=== PATIENT | female | born 1945 | race Caucasian/White ===

== ENCOUNTER 2018-12-31 08:18 | Inpatient (IN) | payer MEDICARE, MEDICAID ==
[2018-12-19 15:17] LABS: BASOPHILS # (AUTO) 0.1 X10'3 (0-0.2); BASOPHILS % (AUTO) 1.1 % (0-1); EOSINOPHILS # (AUTO) 0.1 X10'3 (0-0.9); EOSINOPHILS % (AUTO) 1.9 % (0-6); LYMPHOCYTES % (AUTO) 31.4 % (21-51); MEAN CORPUSCULAR HEMOGLOBIN 28.7 PG (27.0-31.0); MEAN CORPUSCULAR HGB CONC 33.8 g/dL (33.0-36.5); MEAN PLATELET VOLUME 7.8 FL (7.4-10.4); MONOCYTES # (AUTO) 0.6 X10'3 (0-0.9); MONOCYTES % (AUTO) 8.9 % (2-12); NEUTROPHILS # (AUTO) 3.5 X10'3 (1.8-7.7); NEUTROPHILS % (AUTO) 56.7 % (42-75); PRE OP HEMATOCRIT 43.5 % (35.0-45.0); PRE OP HEMOGLOBIN 14.7 g/dL (12.0-16.0); PRE OP PLATELET COUNT 257 X10'3 (140-440); RED BLOOD COUNT 5.12 X10'6 (4.20-5.60); RED CELL DISTRIBUTION WIDTH 13.1 % (11.5-14.5)
[2018-12-19 15:33] LABS: ALBUMIN 3.7 G/DL (3.4-5.0); ALBUMIN/GLOBULIN RATIO 0.9 (1.1-1.5); ALKALINE PHOSPHATASE 73 IU/L (46-116); BLOOD UREA NITROGEN 12 MG/DL (7-18); BUN/CREATININE RATIO 17.1 (6.6-38.0); CALCIUM 9.6 MG/DL (8.5-10.1); CHLORIDE 104 MMOL/L (99-107); PRE OP ALT 76 U/L (30-65); PRE OP ANION GAP 8 (8-16); PRE OP AST 40 U/L (10-37); PRE OP BILIRUB, TOTAL 0.3 MG/DL (0.0-1.0); PRE OP GLUCOSE 105 MG/DL (70-104); PRE OP POTASSIUM 4.2 MMOL/L (3.4-5.1); PRE OP SODIUM 141 MMOL/L (135-145); TOTAL CARBON DIOXIDE 29.1 MMOL/L (24-32); TOTAL PROTEIN 7.7 G/DL (6.4-8.2); eGFR 82 ML/MIN
[2018-12-19 15:34] LABS: HEMOGLOBIN A1C 6.3 % (4.5-6.2)
[~2018-12-31] VITALS: Ht 165.1 cm; Wt 83.1 kg
[2018-12-31] VITALS (19 sets, daily range): BP systolic 87–144; BP diastolic 45–83
[~2018-12-31 08:18] MED LIST: METF500T PO; MONT10TA21 PO; MULT1TAB74 PO
[2018-12-31] MEDS ORDERED: cefazolin/dext.iso 2gm/100 ML IV ONE (08:30)
[2018-12-31] MEDS ORDERED: vancomycin inj 1,500 MG in normal saline 300ml IV soln IV ONE (08:30)
[2018-12-31] MEDS ORDERED: ringers solution, lacted 1,000 ML IV SCH (08:30)
[2018-12-31] MEDS ORDERED: tranexamic acid inj. 1,000 MG in normal saline 100 ML IV ONE (08:30)
[2018-12-31] MEDS ORDERED: famotidine 20mg tablet PO ONE (08:30)
[2018-12-31] MEDS ORDERED: ceFAZolin 1000mg inj ONE (09:00)
[2018-12-31] MEDS ORDERED: tetracaine 1% (10mg/ml) pres. free inj. ONE (10:17)
[2018-12-31] MEDS ORDERED: MIDAZolam 1mg/ml 10ml vial ONE (10:19)
[2018-12-31] MEDS ORDERED: fentaNYL/PF 50MCG/1 ML 2ML syringe ONE (10:19)
[2018-12-31] MEDS ORDERED: propofol inj 20 ML IV ONE (10:52)
--- NOTE | 2018-12-31 12:40 | NUR ---
ADMITTED TO PACU FROM OR ACCOMPANIED BY ANESTHESIA. INTIAL PHYSICAL ASSESSMENT DONE AND RECORDED. AWAKE AND RESPONSE ON ARRIVE YO PACU, REPORT RECEIVED FROM ANESTHESIA.
[2018-12-31] MEDS ORDERED: acetaminophen 325mg tablet PO PRN (12:50)
[2018-12-31] MEDS ORDERED: magnesium hydroxide 30ml (MOM) UD suspension PO PRN (12:50)
[2018-12-31] MEDS ORDERED: bisacodyl 10mg suppository rectal RC PRN (12:50)
[2018-12-31] MEDS ORDERED: HYDROcodone/acetaminophen 10/325mg tab PO PRN (12:50)
[2018-12-31] MEDS ORDERED: HYDROmorphone inj. 0.5 MG/0.5 ML DISP.SYRIN IV PRN (12:50)
[2018-12-31] MEDS ORDERED: ondansetron/PF 4mg/2ml inj IV PRN (12:50)
[2018-12-31] MEDS ORDERED: diphenhydrAMINE 25mg capsule PO PRN ×2 (12:50)
[2018-12-31] MEDS ORDERED: MULT1TAB74 PO (13:05)
[2018-12-31] MEDS ORDERED: METF-436 PO (13:05)
[2018-12-31] MEDS ORDERED: ACET-2119 PO (13:05)
[2018-12-31] MEDS: HYDROcodone/acetaminophen 10/325mg tab PO PRN ×2 (13:54→19:12)
--- NOTE | 2018-12-31 14:00 | NUR ---
PACU DISCHARGE CRITERIA MET, REPORT GIVEN TO FLOOR. DENIES PAIN OR DISCOMFORT, TRANSFERRED TO ROOM IN STABLE GOOD CONDITION.
[2018-12-31] MEDS ORDERED: tranexamic acid inj. 830 MG in normal saline 100ml IV soln 100 ML IV ONE (15:30)
[2018-12-31] MEDS: ketorolac tromethamine 15mg/ml inj. IV SCH ×2 (15:38→20:23)
[2018-12-31] MEDS: ceFAZolin 1GM/D5W- ADD-VANTAGE 50 ML IV SCH (15:38)
[2018-12-31] MEDS ORDERED: HYDROmorphone 1 mg/ml syringe ONE (15:45)
--- NOTE | 2018-12-31 18:10 | NUR ---
Received report from Gladys HERMAN, assumed care of patient.
--- NOTE | 2018-12-31 18:11 | NUR ---
Problems reprioritized. Patient report given, questions answered & plan of care reviewed with Nidia Oviedo
[2018-12-31] MEDS ORDERED: vancomycin/NS 1 GM ADD-VANTAGE 250 ML IV SCH (20:00)
--- NOTE | 2018-12-31 20:03 | NUR ---
Spoke with MD Navarrete regarding ASA and Toradol order. He confirms the order is correct at this time with review of creatine.
[2018-12-31] MEDS: aspirin 81mg tab.chew PO SCH (20:23)
[2018-12-31] MEDS: sennosides 8.6mg tablet PO SCH (20:24)
[2018-12-31] MEDS: potassium Cl 20mEq in NS 1,000 ML IV SCH (22:02)
[2019-01-01] MEDS: ceFAZolin 1GM/D5W- ADD-VANTAGE 50 ML IV SCH (00:06)
[2019-01-01] MEDS: HYDROcodone/acetaminophen 10/325mg tab PO PRN ×4 (00:07→17:40)
[2019-01-01 02:00] VITALS: BP 89/62
[2019-01-01] MEDS: ketorolac tromethamine 15mg/ml inj. IV SCH ×2 (02:06→07:50)
[2019-01-01 06:13] LABS: BASOPHILS % (AUTO) 0.7 % (0-1); EOSINOPHILS # (AUTO) 0.1 X10'3 (0-0.9); EOSINOPHILS % (AUTO) 1.8 % (0-6); HEMATOCRIT 34.4 % (35.0-45.0); HEMOGLOBIN 11.8 g/dl (12.0-16.0); LYMPHOCYTES # (AUTO) 0.9 X10'3 (1.1-4.8); LYMPHOCYTES % (AUTO) 18.1 % (21-51); MEAN CORPUSCULAR HEMOGLOBIN 29.6 PG (27.0-31.0); MEAN CORPUSCULAR HGB CONC 34.2 g/dL (33.0-36.5); MEAN CORPUSCULAR VOLUME 86.4 FL (78-98); MEAN PLATELET VOLUME 7.6 FL (7.4-10.4); MONOCYTES # (AUTO) 0.6 X10'3 (0-0.9); NEUTROPHILS # (AUTO) 3.5 X10'3 (1.8-7.7); NEUTROPHILS % (AUTO) 68.4 % (42-75); PLATELET COUNT 147 X10'3 (140-440); RED BLOOD COUNT 3.98 X10'6 (4.20-5.60); RED CELL DISTRIBUTION WIDTH 13.3 % (11.5-14.5); WHITE BLOOD COUNT 5.1 X10'3 (4.5-11.0)
--- NOTE | 2019-01-01 06:21 | NUR ---
Report given to Peggy HERMAN.
[2019-01-01 06:30] LABS: ALANINE AMINOTRANSFERASE 42 U/L (12-78); ALBUMIN 2.8 G/DL (3.4-5.0); ALBUMIN/GLOBULIN RATIO 0.9 (1.1-1.5); ALKALINE PHOSPHATASE 49 IU/L (46-116); ANION GAP 6 (8-16); ASPARTATE AMINO TRANSFERASE 34 U/L (10-37); BILIRUBIN,TOTAL 0.6 MG/DL (0.1-1.0); BLOOD UREA NITROGEN 11 MG/DL (7-18); BUN/CREATININE RATIO 13.6 (6.6-38.0); CALCIUM 8.2 MG/DL (8.5-10.1); CHLORIDE 108 MMOL/L (99-107); CREATININE 0.81 MG/DL (0.40-0.90); GLUCOSE 136 MG/DL (70-104); POTASSIUM 4.1 MMOL/L (3.5-5.1); SODIUM 142 MMOL/L (135-145); TOTAL CARBON DIOXIDE 28.5 MMOL/L (24-32); TOTAL PROTEIN 5.8 G/DL (6.4-8.2); eGFR 69 ML/MIN
[2019-01-01] MEDS ORDERED: dextrose ORAL solution 15 GM/59 ML bottle PO PRN ×2 (06:35)
[2019-01-01] MEDS ORDERED: glucagon, human recombinant 1mg kit SUBCUT PRN (06:35)
[2019-01-01] MEDS ORDERED: insulin Lispro (HumaLOG) vial - multi-dose SQ SCH (06:35)
[2019-01-01] MEDS ORDERED: dextrose 50%-water 50ml dispensing syringe IV PRN ×2 (06:35)
[2019-01-01] MEDS ORDERED: MESSAGE TO PHARMACY PO ONE (06:35)
[2019-01-01 06:57] VITALS: BP 121/58
[2019-01-01] MEDS: aspirin 81mg tab.chew PO SCH ×2 (07:50→17:39)
[2019-01-01 11:15] VITALS: BP 101/57
[2019-01-01 14:00] VITALS: BP 93/65
--- NOTE | 2019-01-01 15:05 | NUR ---
Joint/DM consults: A1C <7 not appropriate for DM ed. Pt seen by RD for written/verbal high protein ed w/ RD contact information provided. PO 75% avg meals meeting needs. Pt reports new dentures w/ only top row in place but declines texture modifications. Pt declines additional proteins at this time. Addendum: 01/01/19 at [address] Amended: Links added.
[2019-01-01] MEDS: potassium Cl 20mEq in NS 1,000 ML IV SCH (15:27)
[2019-01-01 18:00] VITALS: BP 107/49
--- NOTE | 2019-01-01 18:20 | NUR ---
Received report from Peggy HERMAN, assumed care of patient.
[2019-01-01] MEDS: insulin glargine (Lantus) pen - multi-dose SQ SCH (21:00)
[2019-01-01] MEDS: sennosides 8.6mg tablet PO SCH (21:04)
[2019-01-01 22:00] VITALS: BP 120/63
[2019-01-02] MEDS: HYDROcodone/acetaminophen 10/325mg tab PO PRN ×5 (04:33→21:40)
[2019-01-02 06:00] VITALS: BP 96/54
[2019-01-02 06:17] LABS: BASOPHILS % (AUTO) 0.6 % (0-1); EOSINOPHILS % (AUTO) 0.5 % (0-6); HEMATOCRIT 32.7 % (35.0-45.0); HEMOGLOBIN 11.3 g/dl (12.0-16.0); LYMPHOCYTES # (AUTO) 1.1 X10'3 (1.1-4.8); LYMPHOCYTES % (AUTO) 13.9 % (21-51); MEAN CORPUSCULAR HEMOGLOBIN 29.1 PG (27.0-31.0); MEAN CORPUSCULAR HGB CONC 34.5 g/dL (33.0-36.5); MEAN CORPUSCULAR VOLUME 84.4 FL (78-98); MEAN PLATELET VOLUME 7.7 FL (7.4-10.4); MONOCYTES # (AUTO) 0.7 X10'3 (0-0.9); MONOCYTES % (AUTO) 9.5 % (2-12); NEUTROPHILS # (AUTO) 5.8 X10'3 (1.8-7.7); NEUTROPHILS % (AUTO) 75.5 % (42-75); PLATELET COUNT 144 X10'3 (140-440); RED BLOOD COUNT 3.87 X10'6 (4.20-5.60); RED CELL DISTRIBUTION WIDTH 13.1 % (11.5-14.5); WHITE BLOOD COUNT 7.7 X10'3 (4.5-11.0)
[2019-01-02 06:27] LABS: ALANINE AMINOTRANSFERASE 32 U/L (12-78); ALBUMIN 2.6 G/DL (3.4-5.0); ALBUMIN/GLOBULIN RATIO 0.8 (1.1-1.5); ALKALINE PHOSPHATASE 55 IU/L (46-116); ANION GAP 7 (8-16); ASPARTATE AMINO TRANSFERASE 20 U/L (10-37); BILIRUBIN,TOTAL 0.7 MG/DL (0.1-1.0); BLOOD UREA NITROGEN 10 MG/DL (7-18); BUN/CREATININE RATIO 13.9 (6.6-38.0); CALCIUM 8.2 MG/DL (8.5-10.1); CHLORIDE 105 MMOL/L (99-107); CREATININE 0.72 MG/DL (0.40-0.90); GLUCOSE 125 MG/DL (70-104); POTASSIUM 3.7 MMOL/L (3.5-5.1); SODIUM 137 MMOL/L (135-145); TOTAL PROTEIN 5.9 G/DL (6.4-8.2); eGFR 79 ML/MIN
--- NOTE | 2019-01-02 06:29 | NUR ---
Report given to Kassie HERMAN.
--- NOTE | 2019-01-02 06:45 | NUR ---
Patient in room ORTHO 4018. I have received report from Nidia Christian RN and had the opportunity to ask questions and assume patient care.
[2019-01-02] MEDS: aspirin 81mg tab.chew PO SCH ×2 (07:37→17:25)
[2019-01-02 10:00] VITALS: BP 93/50
[2019-01-02 18:00] VITALS: BP 100/59
--- NOTE | 2019-01-02 18:35 | NUR ---
Report received from Kassie HERMAN, assumed care of patient.
[2019-01-02] MEDS: sennosides 8.6mg tablet PO SCH (20:47)
[2019-01-02] MEDS: insulin glargine (Lantus) pen - multi-dose SQ SCH (20:52)
[2019-01-02 22:00] VITALS: BP 107/57
[2019-01-03] MEDS: HYDROcodone/acetaminophen 10/325mg tab PO PRN ×3 (01:30→10:34)
[2019-01-03 06:00] VITALS: BP 131/62
--- NOTE | 2019-01-03 06:14 | NUR ---
Report given to Yordan HERMAN.
--- NOTE | 2019-01-03 06:44 | NUR ---
Patient in room ORTHO 4018. I have received report from Nidia Pena RN and had the opportunity to ask questions and assume patient care.
[2019-01-03 06:45] LABS: BASOPHILS % (AUTO) 0.5 % (0-1); EOSINOPHILS # (AUTO) 0.1 X10'3 (0-0.9); EOSINOPHILS % (AUTO) 1.7 % (0-6); HEMATOCRIT 32.3 % (35.0-45.0); LYMPHOCYTES # (AUTO) 0.9 X10'3 (1.1-4.8); LYMPHOCYTES % (AUTO) 15.3 % (21-51); MEAN CORPUSCULAR HEMOGLOBIN 29.1 PG (27.0-31.0); MEAN CORPUSCULAR HGB CONC 34.2 g/dL (33.0-36.5); MEAN CORPUSCULAR VOLUME 85.1 FL (78-98); MEAN PLATELET VOLUME 7.4 FL (7.4-10.4); MONOCYTES # (AUTO) 0.7 X10'3 (0-0.9); MONOCYTES % (AUTO) 11.7 % (2-12); NEUTROPHILS # (AUTO) 4.2 X10'3 (1.8-7.7); NEUTROPHILS % (AUTO) 70.8 % (42-75); PLATELET COUNT 141 X10'3 (140-440); RED BLOOD COUNT 3.79 X10'6 (4.20-5.60); RED CELL DISTRIBUTION WIDTH 13.1 % (11.5-14.5); WHITE BLOOD COUNT 5.9 X10'3 (4.5-11.0)
[2019-01-03 07:06] LABS: ALANINE AMINOTRANSFERASE 24 U/L (12-78); ALBUMIN 2.4 G/DL (3.4-5.0); ALBUMIN/GLOBULIN RATIO 0.6 (1.1-1.5); ALKALINE PHOSPHATASE 54 IU/L (46-116); ANION GAP 7 (8-16); ASPARTATE AMINO TRANSFERASE 22 U/L (10-37); BILIRUBIN,TOTAL 0.5 MG/DL (0.1-1.0); BLOOD UREA NITROGEN 11 MG/DL (7-18); BUN/CREATININE RATIO 16.7 (6.6-38.0); CALCIUM 8.1 MG/DL (8.5-10.1); CHLORIDE 105 MMOL/L (99-107); CREATININE 0.66 MG/DL (0.40-0.90); GLUCOSE 110 MG/DL (70-104); POTASSIUM 3.9 MMOL/L (3.5-5.1); SODIUM 137 MMOL/L (135-145); TOTAL CARBON DIOXIDE 25.1 MMOL/L (24-32); TOTAL PROTEIN 6.1 G/DL (6.4-8.2); eGFR 88 ML/MIN
[2019-01-03] MEDS: aspirin 81mg tab.chew PO SCH (08:05)
[2019-01-03 09:37] VITALS: BP 99/57
--- NOTE | 2019-01-03 12:48 | NUR ---
Called report to Carlos Nick LVN at [facility]
--- NOTE | 2019-01-03 13:52 | NUR ---
Patient discharged to [facility] with all belongings, patient stable for transport and discharge
== END 2019-01-03 13:10 | DRG 470 ==
LOC: PAS IN 08:18 → EDSTATUS 10:30 → ORTHO 4S 13:15
PROVIDERS: ADMIT Orthopaedic Surgery; ATTEND Orthopaedic Surgery
PROC: 0SRB06Z Replacement of Left Hip Joint with Oxidized Zirconium on Polyethylene Synthetic Substitute, Open Approach (ICD-10-PCS; principal; 2018-12-31 10:17)
DX: M16.12 Unilateral primary osteoarthritis, left hip (principal); D62 Acute posthemorrhagic anemia; E66.9 Obesity, unspecified; E11.9 Type 2 diabetes mellitus without complications; Z87.891 Personal history of nicotine dependence; Z68.30 Body mass index [BMI] 30.0-30.9, adult; Z79.899 Other long term (current) drug therapy
CPT/HCPCS: 36415; 80053; 82948; 83036; 85025; 85610; 85730; 86885; 86900; 86901; 86920; 87081; 97110; 97116; 97161; 97530; A4618; A7000; C1758; C1776; G0378; J0690; J1170; J1815; J1885; J2250; J2704; J3010; J3370; J3480; J7120

== ENCOUNTER 2019-03-26 15:18 | Inpatient (IN) | payer MEDICARE, MEDICAID ==
[~2019-03-26] VITALS: Ht 167.6 cm; Wt 82.7 kg
[~2019-03-26 15:18] MED LIST changes: +ACET-2119 PO; +METF-436 PO; -METF500T PO; -MONT10TA21 PO
[2019-03-26] MEDS ORDERED: TURM1POW PO (15:55)
[2019-03-26] MEDS ORDERED: FISH12002 PO (15:55)
[2019-03-26] MEDS ORDERED: MAGN500C16 PO (15:55)
[2019-03-26] MEDS ORDERED: MONT10TA21 PO (15:55)
[2019-03-26] MEDS ORDERED: ASCO1TAB39 PO (15:55)
[2019-03-26] MEDS ORDERED: SIMV-42 PO (15:55)
[2019-03-26] MEDS ORDERED: D-MA1POW PO (15:55)
[2019-03-26 16:13] LABS: CLARITY,URINE SLIGHTLY CLOUDY (Clear); GLUCOSE, URINE NEGATIVE (Neg); KETONES,URINE TRACE mg/dl (Neg); LEUKOCYTE ESTERASE ,URINE SMALL (Neg); NITRITES, URINE NEGATIVE (Neg); OCCULT BLOOD,URINE NEGATIVE (Neg); PH,URINE 6.5 (4.8-8.0); PROTEIN,URINE NEGATIVE (Neg)
[2019-03-26 16:15] LABS: BASOPHILS # (AUTO) 0.1 X10'3 (0-0.2); BASOPHILS % (AUTO) 0.8 % (0-1); EOSINOPHILS % (AUTO) 0.2 % (0-6); HEMATOCRIT 41.1 % (35.0-45.0); HEMOGLOBIN 13.9 g/dl (12.0-16.0); LYMPHOCYTES % (AUTO) 11.7 % (21-51); MEAN CORPUSCULAR HEMOGLOBIN 27.9 PG (27.0-31.0); MEAN CORPUSCULAR HGB CONC 33.9 g/dL (33.0-36.5); MEAN CORPUSCULAR VOLUME 82.5 FL (78-98); MEAN PLATELET VOLUME 8.2 FL (7.4-10.4); MONOCYTES # (AUTO) 0.4 X10'3 (0-0.9); MONOCYTES % (AUTO) 4.9 % (2-12); NEUTROPHILS # (AUTO) 6.9 X10'3 (1.8-7.7); NEUTROPHILS % (AUTO) 82.4 % (42-75); PLATELET COUNT 218 X10'3 (140-440); RED BLOOD COUNT 4.98 X10'6 (4.20-5.60); RED CELL DISTRIBUTION WIDTH 13.6 % (11.5-14.5); WHITE BLOOD COUNT 8.4 X10'3 (4.5-11.0)
[2019-03-26 16:17] LABS: COLOR,URINE DARK YELLOW (Yellow); UA COLLECTION TYPE CLN CATCH MIDSTREAM
[2019-03-26 16:22] LABS: BACTERIA,URINE 1+ /HPF (Neg); HYALINE CASTS 0-3 /LPF (NEGATIVE); MUCUS STRANDS MANY /LPF (Neg); RBC,URINE NONE SEEN /HPF (0-2); SQUAMOUS EPITHELIAL CELL,UR FEW /LPF (FEW)
[2019-03-26] MEDS ORDERED: morphine 10mg/ml inj. IV ONE (16:40)
[2019-03-26] MEDS ORDERED: ringers solution, lacted 1,000 ML IV ONE (16:40)
[2019-03-26 16:44] LABS: ALANINE AMINOTRANSFERASE 32 U/L (12-78); ALBUMIN 3.7 G/DL (3.4-5.0); ALBUMIN/GLOBULIN RATIO 0.9 (1.1-1.5); ALKALINE PHOSPHATASE 75 IU/L (46-116); ANION GAP 11 (8-16); ASPARTATE AMINO TRANSFERASE 34 U/L (10-37); BILIRUBIN,TOTAL 0.4 MG/DL (0.1-1.0); BLOOD UREA NITROGEN 13 MG/DL (7-18); BUN/CREATININE RATIO 18.6 (6.6-38.0); CALCIUM 9.5 MG/DL (8.5-10.1); CHLORIDE 104 MMOL/L (99-107); GLUCOSE 131 MG/DL (70-104); LIPASE 110 U/L (73-393); POTASSIUM 3.7 MMOL/L (3.5-5.1); SODIUM 140 MMOL/L (135-145); TOTAL CARBON DIOXIDE 24.6 MMOL/L (24-32); TOTAL PROTEIN 7.7 G/DL (6.4-8.2); eGFR 82 ML/MIN
[2019-03-26] MEDS ORDERED: iohexol 300mg/ml 100ml inj. ONE (16:58)
--- NOTE | 2019-03-26 17:43 | NUR ---
PT TAKEN TO CT VIA W/C BY TECH.
--- NOTE | 2019-03-26 18:07 | NUR ---
PT BACK FROM CT, VSS.
[2019-03-26] MEDS ORDERED: glucagon, human recombinant 1mg kit SUBCUT PRN (20:10)
[2019-03-26] MEDS ORDERED: morphine 2 MG/ML inj. syringe IV PRN (20:10)
[2019-03-26] MEDS ORDERED: MESSAGE TO PHARMACY PO ONE (20:10)
[2019-03-26] MEDS ORDERED: ondansetron/PF 4mg/2ml inj IV PRN (20:10)
[2019-03-26] MEDS ORDERED: dextrose 50%-water 50ml dispensing syringe IV PRN ×2 (20:10)
[2019-03-26] MEDS ORDERED: dextrose ORAL solution 15 GM/59 ML bottle PO PRN ×2 (20:10)
[2019-03-26] MEDS ORDERED: insulin Lispro (HumaLOG) vial - multi-dose SQ SCH (20:10)
--- NOTE | 2019-03-26 20:36 | NUR ---
RECEIVED REPORT FROM ER NURSE MAXI HERMAN. WILL ASSUME PATIENT CARE.
[2019-03-26 21:00] VITALS: BP 106/68
[2019-03-26] MEDS: normal saline 1000ml 1,000 ML IV SCH (21:10)
[2019-03-27] VITALS (14 sets, daily range): BP systolic 98–148; BP diastolic 52–76
[2019-03-27 05:03] LABS: BASOPHILS % (AUTO) 0.8 % (0-1); EOSINOPHILS # (AUTO) 0.1 X10'3 (0-0.9); EOSINOPHILS % (AUTO) 2.1 % (0-6); HEMATOCRIT 36.6 % (35.0-45.0); HEMOGLOBIN 12.5 g/dl (12.0-16.0); LYMPHOCYTES # (AUTO) 1.9 X10'3 (1.1-4.8); LYMPHOCYTES % (AUTO) 33.5 % (21-51); MEAN CORPUSCULAR HEMOGLOBIN 28.1 PG (27.0-31.0); MEAN CORPUSCULAR HGB CONC 34.2 g/dL (33.0-36.5); MEAN PLATELET VOLUME 8.4 FL (7.4-10.4); MONOCYTES # (AUTO) 0.5 X10'3 (0-0.9); MONOCYTES % (AUTO) 9.5 % (2-12); NEUTROPHILS % (AUTO) 54.1 % (42-75); PLATELET COUNT 200 X10'3 (140-440); RED BLOOD COUNT 4.47 X10'6 (4.20-5.60); WHITE BLOOD COUNT 5.5 X10'3 (4.5-11.0)
[2019-03-27 05:10] LABS: PARTIAL THROMBOPLASTIN TIME 24 SECONDS (22-32)
[2019-03-27 05:12] LABS: ALANINE AMINOTRANSFERASE 27 U/L (12-78); ALBUMIN 2.9 G/DL (3.4-5.0); ALBUMIN/GLOBULIN RATIO 0.9 (1.1-1.5); ALKALINE PHOSPHATASE 61 IU/L (46-116); ANION GAP 5 (8-16); ASPARTATE AMINO TRANSFERASE 24 U/L (10-37); BILIRUBIN,TOTAL 0.4 MG/DL (0.1-1.0); BLOOD UREA NITROGEN 10 MG/DL (7-18); BUN/CREATININE RATIO 15.6 (6.6-38.0); CALCIUM 9.2 MG/DL (8.5-10.1); CHLORIDE 110 MMOL/L (99-107); CREATININE 0.64 MG/DL (0.40-0.90); GLUCOSE 97 MG/DL (70-104); POTASSIUM 3.7 MMOL/L (3.5-5.1); SODIUM 146 MMOL/L (135-145); TOTAL CARBON DIOXIDE 30.6 MMOL/L (24-32); TOTAL PROTEIN 6.3 G/DL (6.4-8.2); eGFR 90 ML/MIN
[2019-03-27] MEDS: normal saline 1000ml 1,000 ML IV SCH (05:48)
--- NOTE | 2019-03-27 06:57 | NUR ---
Patient in room JOSE 350. I have received report from VIRGIL NICOLE and had the opportunity to ask questions and assume patient care.
[2019-03-27] MEDS ORDERED: ATOR20TA66 PO (07:13)
[2019-03-27] MEDS: montelukast 10mg tablet PO SCH (08:00)
[2019-03-27] MEDS ORDERED: ESTR42.53 VG (09:30)
[2019-03-27] MEDS ORDERED: TRAM50TA2 PO (09:57)
[2019-03-27] MEDS ORDERED: dextrose 5%-water 1,000 ML IV SCH (14:25)
--- NOTE | 2019-03-27 19:57 | NUR ---
Patient report given to recovery nurse Bernard HERMAN. Patient left to surgery.
[2019-03-27] MEDS ORDERED: ceFAZolin 1000mg inj ONE ×2 (20:48→21:31)
[2019-03-27] MEDS ORDERED: BUPIVAcaine/PF 2.5 mg/ml (0.25%) 30ml vial ONE (20:48)
[2019-03-27] MEDS ORDERED: ePHEDrine 50MG/ML INJ. ONE (21:12)
[2019-03-27] MEDS ORDERED: sevoflurane 250ml liquid IH ONE (21:12)
[2019-03-27] MEDS ORDERED: ringers solution, lacted 1,000 ML IV SCH (21:13)
[2019-03-27] MEDS ORDERED: ondansetron/PF 4mg/2ml inj IV PRN (21:15)
[2019-03-27] MEDS ORDERED: fentaNYL/PF 50MCG/1 ML 2ML syringe ONE (21:19)
[2019-03-27] MEDS ORDERED: propofol inj 20 ML IV ONE (21:29)
[2019-03-27] MEDS ORDERED: rocuronium 10mg/ml inj IV ONE (21:29)
[2019-03-27] MEDS ORDERED: LIDOcaine 2% (20mg/ml) 5ml vial ONE (21:29)
[2019-03-27] MEDS ORDERED: glycopyrrolate 0.2mg/ml inj ONE (22:11)
[2019-03-27] MEDS ORDERED: neostigmine methylsulfate 1 MG/ML 10ml vial ONE (22:11)
[2019-03-27] MEDS ORDERED: ondansetron/PF 4mg/2ml inj ONE (22:11)
--- NOTE | 2019-03-27 22:14 | NUR ---
Received from OR via BED, accompanied by Anesthesiologist DR MEZA and report given by Anesthesiologist. PT DROWSY, PAINFUL, NAUSEATED, MEDS GIVEN SEE EMR. ABDOMEN W/2 LAP SITES W/BANDAIDS CDI. Addendum: 03/27/19 at 2244 by Modesta Hayes RN Amended: Links added.
[2019-03-27] MEDS: morphine 4 MG/ML inj SYRINge IV PRN ×2 (22:20→22:25)
[2019-03-27] MEDS: HYDROmorphone inj. 0.5 MG/0.5 ML DISP.SYRIN IV PRN ×3 (22:28→22:58)
[2019-03-27] MEDS ORDERED: acetaminophen 1,000mg/100ml IV 100 ML IV ONE (22:30)
--- NOTE | 2019-03-27 23:04 | NUR ---
Report called to receiving nurse. Transferred via BED, NO Belongings, PT STATES NAUSEA HAS SUBSIDED AND PAIN IS MUCH IMPROVED, PT STATES SHE IS COMFORTABLE, RECEIVING RN AT BEDSIDE TO RECEIVE PT, BLL, CALL LIGHT GIVEN, SIDE RAILS UP X 2. Special Issues communicated to receiving nurse. YES. Addendum: 03/27/19 at 2319 by Modesta Hayes RN Amended: Links added.
[2019-03-28] VITALS (9 sets, daily range): BP systolic 89–112; BP diastolic 44–72
[2019-03-28] MEDS: dextrose 5%-water 1,000 ML IV SCH ×3 (00:43→19:54)
[2019-03-28] MEDS: morphine 2 MG/ML inj. syringe IV PRN ×4 (02:08→10:34)
[2019-03-28 05:02] LABS: EOSINOPHILS # (AUTO) 0.1 X10'3 (0-0.9); MONOCYTES # (AUTO) 0.5 X10'3 (0-0.9)
[2019-03-28 05:06] LABS: BASOPHILS % (AUTO) 0.5 % (0-1); EOSINOPHILS % (AUTO) 0.9 % (0-6); HEMOGLOBIN 12.6 g/dl (12.0-16.0); LYMPHOCYTES # (AUTO) 1.4 X10'3 (1.1-4.8); LYMPHOCYTES % (AUTO) 20.9 % (21-51); MEAN CORPUSCULAR HEMOGLOBIN 27.9 PG (27.0-31.0); MEAN CORPUSCULAR VOLUME 82.2 FL (78-98); MEAN PLATELET VOLUME 8.1 FL (7.4-10.4); MONOCYTES % (AUTO) 7.5 % (2-12); NEUTROPHILS # (AUTO) 4.6 X10'3 (1.8-7.7); NEUTROPHILS % (AUTO) 70.2 % (42-75); PLATELET COUNT 176 X10'3 (140-440); RED CELL DISTRIBUTION WIDTH 14.1 % (11.5-14.5); WHITE BLOOD COUNT 6.6 X10'3 (4.5-11.0)
[2019-03-28 05:14] LABS: ALANINE AMINOTRANSFERASE 25 U/L (12-78); ALBUMIN 2.8 G/DL (3.4-5.0); ALBUMIN/GLOBULIN RATIO 0.9 (1.1-1.5); ALKALINE PHOSPHATASE 59 IU/L (46-116); ANION GAP 3 (8-16); ASPARTATE AMINO TRANSFERASE 27 U/L (10-37); BILIRUBIN,TOTAL 0.4 MG/DL (0.1-1.0); BLOOD UREA NITROGEN 7 MG/DL (7-18); BUN/CREATININE RATIO 10.1 (6.6-38.0); CALCIUM 8.6 MG/DL (8.5-10.1); CHLORIDE 108 MMOL/L (99-107); CREATININE 0.69 MG/DL (0.40-0.90); GLUCOSE 120 MG/DL (70-104); POTASSIUM 3.7 MMOL/L (3.5-5.1); SODIUM 143 MMOL/L (135-145); eGFR 83 ML/MIN
--- NOTE | 2019-03-28 06:47 | NUR ---
Problems reprioritized. Patient report given, questions answered & plan of care reviewed with VIRGIL NICOLE.
--- NOTE | 2019-03-28 06:50 | NUR ---
Patient in room JOSE 350. I have received report from VIRGIL Vines and had the opportunity to ask questions and assume patient care.
[2019-03-28] MEDS: metFORMIN 500mg tablet PO SCH ×2 (08:04→17:32)
[2019-03-28] MEDS: montelukast 10mg tablet PO SCH (08:13)
[2019-03-28] MEDS: atorvastatin 20mg tablet PO SCH (08:13)
--- NOTE | 2019-03-28 11:06 | NUR ---
DM consult: Pt with A1c 6.0 which is downtrending per records, previously with A1c 6.3 12/19/18. No DM education warranted at this time. Will continue to follow. Addendum: 03/28/19 at [address] Amended: Links added.
[2019-03-28] MEDS: morphine 10 MG/5 ML UD oral solution PO PRN ×3 (12:25→21:52)
--- NOTE | 2019-03-28 14:47 | NUR ---
Dr. Almazan rounded/ assessed pt. stated ok for pt to be discharged home and to f/u w/Dr. Almazan in his office in 1-[address] Roberts was notified.
[2019-03-28] MEDS ORDERED: normal saline 1000ml 1,000 ML IVB ONE (15:36)
--- NOTE | 2019-03-28 15:40 | NUR ---
Notified Dr. Almazan that patient has not had a regular diet yet and patient has been on a clear liq diet as patient c/o "feeling full" even after just fluids. Dr Almazan wants patient to be able to tolerate reg diet before discharge. Let patient know that she will need to tolerate a regular diet before she can discharge. Patient sitting up in chair and while speaking to patient, patient attempted to stand up and c/o that she felt dizzy and lightheaded. Patient reports that she was feeling lightheaded and dizzy as she was sitting in chair already but wanted to stand up. BG was checked= 114 and BP was 64/30 HR 75, 67/40 77 with vitals machine. Patient was then assisted back to bed, head of bed lowered and legs elevated. Manual bp was 100/[address] Roberts notified and new orders for NS @ 250ml for 1000ml ordered.
--- NOTE | 2019-03-28 17:23 | NUR ---
Student documentation: I have reviewed all interventions, assessments performed and documented by Yanet SAXENA Addendum: 03/28/19 at 1730 by Bianca LOREDO RN charted on wrong patient
--- NOTE | 2019-03-28 17:24 | NUR ---
Student Medication Administration: medication was reviewed, dispensed, administered and documented per hospital policy Sebas BALDERRAMA Addendum: 03/28/19 at 1730 by Bianca LOREDO RN charted on wrong patient
--- NOTE | 2019-03-28 17:51 | NUR ---
Student documentation: I have reviewed all interventions, assessments performed and documented by .Yanet BALDERRAMA
--- NOTE | 2019-03-28 17:52 | NUR ---
Student Medication Administration: this medication-pass was reviewed, dispensed, administered and documented per hospital policy by .Yanet BALDERRAMA
--- NOTE | 2019-03-28 18:10 | NUR ---
Patient in room JO[facility] 349. I have received report from Andrea HERMAN and had the opportunity to ask questions and assume patient care.
--- NOTE | 2019-03-28 18:58 | NUR ---
Problems reprioritized. Patient report given, questions answered & plan of care reviewed with mere martines.
[2019-03-29 00:58] VITALS: BP 91/5
[2019-03-29 05:25] LABS: BASOPHILS % (AUTO) 0.3 % (0-1); EOSINOPHILS % (AUTO) 0.7 % (0-6); HEMATOCRIT 37.4 % (35.0-45.0); HEMOGLOBIN 12.5 g/dl (12.0-16.0); LYMPHOCYTES # (AUTO) 1.4 X10'3 (1.1-4.8); LYMPHOCYTES % (AUTO) 21.3 % (21-51); MEAN CORPUSCULAR HEMOGLOBIN 27.8 PG (27.0-31.0); MEAN CORPUSCULAR HGB CONC 33.4 g/dL (33.0-36.5); MEAN CORPUSCULAR VOLUME 83.1 FL (78-98); MEAN PLATELET VOLUME 8.4 FL (7.4-10.4); MONOCYTES # (AUTO) 0.6 X10'3 (0-0.9); MONOCYTES % (AUTO) 9.2 % (2-12); NEUTROPHILS # (AUTO) 4.4 X10'3 (1.8-7.7); NEUTROPHILS % (AUTO) 68.5 % (42-75); PLATELET COUNT 196 X10'3 (140-440); WHITE BLOOD COUNT 6.5 X10'3 (4.5-11.0)
[2019-03-29 05:29] LABS: ALANINE AMINOTRANSFERASE 25 U/L (12-78); ALBUMIN 3.1 G/DL (3.4-5.0); ALBUMIN/GLOBULIN RATIO 0.8 (1.1-1.5); ALKALINE PHOSPHATASE 64 IU/L (46-116); ANION GAP 6 (8-16); ASPARTATE AMINO TRANSFERASE 24 U/L (10-37); BILIRUBIN,TOTAL 0.7 MG/DL (0.1-1.0); BLOOD UREA NITROGEN 7 MG/DL (7-18); BUN/CREATININE RATIO 9.9 (6.6-38.0); CALCIUM 8.7 MG/DL (8.5-10.1); CHLORIDE 105 MMOL/L (99-107); CREATININE 0.71 MG/DL (0.40-0.90); GLUCOSE 109 MG/DL (70-104); POTASSIUM 3.7 MMOL/L (3.5-5.1); SODIUM 140 MMOL/L (135-145); TOTAL CARBON DIOXIDE 29.2 MMOL/L (24-32); TOTAL PROTEIN 6.8 G/DL (6.4-8.2); eGFR 80 ML/MIN
[2019-03-29] MEDS: dextrose 5%-water 1,000 ML IV SCH (06:20)
--- NOTE | 2019-03-29 06:27 | NUR ---
Problems reprioritized. Patient report given, questions answered & plan of care reviewed with Kassie HERMAN.
--- NOTE | 2019-03-29 06:36 | NUR ---
Patient in room JO[facility] 349. I have received report from VIRGIL Alberto and had the opportunity to ask questions and assume patient care.
[2019-03-29] MEDS: montelukast 10mg tablet PO SCH (07:40)
[2019-03-29] MEDS: metFORMIN 500mg tablet PO SCH (07:40)
[2019-03-29] MEDS: atorvastatin 20mg tablet PO SCH (07:40)
[2019-03-29 08:00] VITALS: BP 102/53
[2019-03-29] MEDS ORDERED: CefTRIAXone/D5W-Rocephin 1gm 50 ML IV SCH (09:15)
[2019-03-29 11:30] VITALS: BP_SYST 113; BP_SYST 115; BP_DIAS 65; BP_DIAS 70
[2019-03-29 13:11] VITALS: BP 105/53
--- NOTE | 2019-03-29 14:00 | NUR ---
Pt discharged home with daughter. Pt doing well. Appropriate for discharge. IV taken out, no tele.Meds given to patient from pharmacy. Pt will f/u with dr Almazan in office. All belongings taken from room.
== END 2019-03-29 13:51 | disposition home or self-care (01) | DRG 352 ==
LOC: ER 15:18 → ED HOLD 20:22 → SUR 3N 20:45
PROVIDERS: ADMIT Internal Medicine; ATTEND Family Medicine
PROC: BW211ZZ Computerized Tomography (CT Scan) of Abdomen and Pelvis using Low Osmolar Contrast (ICD-10-PCS; 2019-03-26)
PROC: 0YU54JZ Supplement Right Inguinal Region with Synthetic Substitute, Percutaneous Endoscopic Approach (ICD-10-PCS; principal; 2019-03-27 21:12)
DX: K40.30 Unilateral inguinal hernia, with obstruction, without gangrene, not specified as recurrent (principal); K52.9 Noninfective gastroenteritis and colitis, unspecified; Z96.641 Presence of right artificial hip joint; I95.1 Orthostatic hypotension; E11.9 Type 2 diabetes mellitus without complications; E78.5 Hyperlipidemia, unspecified; Z79.84 Long term (current) use of oral hypoglycemic drugs; Z90.710 Acquired absence of both cervix and uterus; Z90.49 Acquired absence of other specified parts of digestive tract
CPT/HCPCS: 36415; 71045; 74177; 80053; 81001; 82948; 83036; 83690; 85025; 85610; 85730; 87081; 87088; 96361; 96374; 99285; A4215; A4314; A4618; C1727; C1781; G0378; J0131; J0690; J1170; J1815; J2001; J2270; J2405; J2704; J2710; J3010; J3490; J7030; J7070; J7120; Q9967